=== PATIENT | male | born 1930 | race Hispanic/Latino ===

== ENCOUNTER 2017-09-19 13:50 | Observation (INO) | payer MEDICARE, MEDICAID ==
[2017-09-19 14:31] LABS: #Basophils 0.1 thou/uL (0.0-0.2); #Eosinphils 0.4 thou/uL (0.0-0.7); #Monocytes 0.4 thou/uL (0.11-0.59); #Neutrophils 6.3 thou/uL (1.40-6.50); %Basophils 0.8 % (0.0-1.0); %Eosinophils 4.2 % (0.0-10.0); %Lymphocytes 22.1 % (21.0-51.0); %Monocytes 4.2 % (0.0-10.0); Hematocrit 38.1 % (42.0-52.0); Mean Platelet Volume 7.5 fL (7.4-10.4); Red Blood Cell (RBC) Count 4.07 mill/uL (4.70-6.10); White Blood Cell (WBC) Count 9.2 thou/uL (4.8-10.8)
[2017-09-19 14:39] LABS: Digoxin Less than 0.15 ng/mL (0.8-2.0); PTT 29.3 SEC (22.9-36.1); Prothrombin Time 13.6 SEC (12.0-14.7)
[2017-09-19 14:41] LABS: ALT (SGPT) 48 U/L (8-55); AST (SGOT) 52 U/L (5-34); Alkaline Phosphatase 136 U/L (40-150); Anion Gap 17 mmol/L (10-20); BUN (Urea Nitrogen) 33 mg/dL (8.4-25.7); CK (CPK) 285 U/L (30-200); Calc. Creatinine Clearance 0 mL/min (70-130); Calcium 9.3 mg/dL (7.8-10.44); Carbon Dioxide 20 mmol/L (23-31); Chloride 100 mmol/L (98-107); Estimated GFR-MDRD 32; Globulin 3.6 g/dL (2.4-3.5); Lipase 9 U/L (8-78); Protein, Total 7.6 g/dL (5.8-8.1)
[2017-09-19 14:45] LABS: Troponin I 0.238 ng/mL (< 0.028)
[2017-09-19] MEDS ORDERED: Nitroglycerin 2% Ointment 1 INCH/1 GM Packet ONE (14:45)
--- NOTE | 2017-09-19 15:57 | RAD ---
PORTABLE AP CHEST X-RAY: 09/19/17 HISTORY: Chest pain. COMPARISON: None available. FINDINGS: The cardiac silhouette and pulmonary vasculature are within normal limits. There is blunting of the l eft lateral costophrenic angle which may represent a tiny left pleural effusion versus pleural and pa renchymal scarring. There is slight asymmetric increased density at the left lung apex with associate d calcification. This could be related to partially calcified pleural based plaque in this region, bu t this cannot be further evaluated on this exam. The lungs are otherwise clear. Osseous structures ar e intact. Surgical clips overlie the right upper quadrant. IMPRESSION: 1. Blunting left costophrenic angle which may be related to small left pleural effusion versus p leural and parenchymal scarring. 2. Asymmetric pleural density left lung apex with associated calcification. This could be relate d to chronic pleural and parenchymal scarring which is partially calcified. However, direct compariso n with prior chest x-rays is recommended if available. POS: NILAY
[2017-09-19] MEDS ORDERED: Senokot 8.6 MG TAB PO PRN (16:19)
[2017-09-19] MEDS ORDERED: Acetaminophen 325 MG TAB PO PRN (16:19)
[2017-09-19] MEDS ORDERED: Eucerin (Mineral Oil/Petrolatum,White) 30 gm Jar TOP PRN (16:19)
[2017-09-19] MEDS ORDERED: Loperamide HCl 2 MG CAP PO PRN (16:19)
[2017-09-19] MEDS ORDERED: Milk Of Magnesia 30 ML UDCUP PO PRN (16:19)
[2017-09-19] MEDS ORDERED: Sodium Chloride 0.65% Nasal 44 ML BOT EA NARE PRN (16:19)
[2017-09-19] MEDS ORDERED: Diabetic Tussin 200 MG/10 ML UDCUP PO PRN (16:19)
[2017-09-19] MEDS ORDERED: Mag-Al 1200 mg/1200 mg/30 ML UDCUP PO PRN (16:19)
[2017-09-19] MEDS ORDERED: Nitroglycerin 0.4 MG TAB (25 Tab Bottle) SL PRN (16:19)
[2017-09-19] MEDS ORDERED: Zolpidem Tartrate 5 MG TAB PO PRN (16:19)
[2017-09-19] MEDS ORDERED: Ondansetron HCl/PF 4 MG/2 ML Vial IVP PRN (16:19)
[2017-09-19] MEDS ORDERED: HYDROcodone/Acetaminophen 5/325 mg Tablet PO PRN (16:19)
[2017-09-19] MEDS ORDERED: Loratadine 10 MG TAB PO PRN (16:19)
[2017-09-19] MEDS ORDERED: Ondansetron ODT 4 MG TAB PO PRN (16:19)
--- NOTE | 2017-09-19 16:48 | HP ---
PRIMARY CARE PHYSICIAN: Dr. Asmita Townsend M.D. REASON FOR ADMISSION: Chest pain. 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 He is a very poor historian and his description of chest pain is left-sided pain about 5/10 in intensity, without any radiation, without any association of nausea, vomiting, diaphoresis. He was also feeling shortness of breath. Family member was worried about heart attack and that is why they brought him to the emergency room for evaluation. Family member reports that he also has right toe pain and because of back pain, patient is not eating and drinking enough at home. He was recently admitted for Blue toe syndrome and Dr. Jimenez evaluated this patient and patient was found with embolic phenomena. ALLERGIES: HYDROCODONE, MORPHINE, TRAMADOL. CURRENT HOME MEDICATIONS: Tylenol No. 3 one tablet q.6 hourly p.r.n., Imdur 60 mg daily, Flomax 0.4 mg p.o. at bedtime, Synthroid 75 mcg p.o. daily, Plavix 75 mg p.o. daily, aspirin 81 mg p.o. daily, Proscar 5 mg p.o. daily, Aricept 5 mg p.o. at bedtime, nitroglycerin 0.4 mg sublingual p.r.n. for chest pain, amlodipine 5 mg p.o. daily, fentanyl patch every 3 days, Flonase nasal spray daily, and Lipitor 40 mg p.o. at bedtime. PAST MEDICAL HISTORY: Coronary artery disease, peripheral vascular disease, benign enlargement of prostate, hypothyroidism, dyslipidemia, senile dementia, hypertension, and chronic kidney disease stage 3. PAST SURGICAL HISTORY: Cataract surgery, inguinal hernia repair, and cholecystectomy. PAST PSYCHIATRIC HISTORY: Reviewed and negative. SOCIAL HISTORY: Patient is a former smoker. Patient lives at home with the family. No history of alcohol or other illicit drug abuse. FAMILY HISTORY: Multiple family members have hypertension, coronary artery disease. No strong family history of cancer or stroke. EMERGENCY ROOM COURSE: Patient is given nitro patch and aspirin 324 mg. REVIEW OF SYSTEMS: The following complete review of systems was negative, unless otherwise mentioned in the HPI or below: Constitutional: Weight loss or gain, ability to conduct usual activities. Skin: Rash, itching. Eyes: Double vision, pain. ENT/Mouth: Nose bleeding, neck stiffness, pain, tenderness. Cardiovascular: Palpitations, dyspnea on exertion, orthopnea. Respiratory: Shortness of breath, wheezing, cough, hemoptysis, fever or night sweats. Gastrointestinal: Poor appetite, abdominal pain, heartburn, nausea, vomiting, constipation, or diarrhea. Genitourinary: Urgency, frequency, dysuria, nocturia. Musculoskeletal: Pain, swelling. Neurologic/Psychiatric: Anxiety, depression. Allergy/Immunologic: Skin rash, bleeding tendency. Please see my HPI for pertinent positives and negatives. All other review of systems reviewed and negative except as mentioned in the HPI. PHYSICAL EXAMINATION: VITAL SIGNS: On arrival, blood pressure 154/86, pulse 96, respiratory rate 17, temperature 98.1, saturation 96% on room air, and weight 47.1 kilograms. GENERAL: Patient is currently alert, awake, chronically ill, in no obvious acute distress, hypertensive. HEENT: Head is normocephalic, atraumatic. Eyes: Pupils round, reactive to light. Extraocular muscle intact. ENT: Oropharynx within normal limits. Moist mucous membranes. No oral lesions. No pharyngeal erythema, no exudate. NECK: Supple. Range of motion is normal. No meningeal signs of irritation. LUNGS: Clear to auscultation without any rhonchi or rales. CARDIAC: S1 and S2 regular. No murmur, no gallop, no rub. ABDOMEN: Soft, bowel sounds present, nontender, nondistended. No organomegaly , no mass, no suprapubic tenderness. BACK: Unremarkable, no CVA tenderness. EXTREMITIES: Upper extremity passive movement of all joints are normal. Lower extremity: Patient has bruising and ecchymosis of all 5 right-sided toes and right small toe is more macerated appearing. Left lower extremity within normal limits. No pitting edema. I could not elicit any calf tenderness or negative Homans' sign. NEUROLOGIC: Nonfocal examination. Patient is moving all four limbs, plantar bilateral flexor. PSYCHIATRIC: Normal affect. SKIN: No skin rash other than toe discoloration on the right side. HEMATOLOGIC: No lymphadenopathy. SIGNIFICANT LABS: EKG based on my review reveals normal sinus rhythm, nonspecific ST-T changes in lateral leads. Chest x-ray; left-sided small pleural effusion, chronic changes without any acute process. CBC: WBC 9.2, hemoglobin 12.3, platelet 215. INR 1.0. BMP: Sodium 133, potassium 4.2, chloride 100, carbon dioxide 20, anion gap 17, BUN 33, creatinine 1.97, glucose 91, and calcium 9.3. 2. LFT: AST 52, ALT 48, alkaline phosphatase 136, CK 285, CK-MB 5.4, troponin 0.238, albumin 4.0, lipase 9. Digoxin level less than 0.15. ASSESSMENT AND PLAN: 1. Chest pain. Patient's chest pain description is atypical. Difficult to determine whether it is angina or musculoskeletal pain. Patient has several risk factors for coronary artery disease. At this point, patient has indeterminant troponin, but EKG is unremarkable. We will keep this patient in the hospital for observation. We will do serial cardiac enzymes x3, we will decide if this patient needs any stress test tomorrow morning. At this point, I will keep n.p.o. after midnight and tomorrow morning based on his blood test, we will decide whether we need to do stress test or not. We will check lipid profile for risk stratification. Meanwhile, we will continue with aspirin 81 mg p.o. daily, Plavix 75 mg p.o. daily, and nitropatch q.8 hourly. We will also continue Lipitor 40 mg p.o. at bedtime. 2. Coronary artery disease. We will continue nitropatch q.8 hourly and the patient's home medication including aspirin and Plavix. 3. Hypothyroidism. We will continue Synthroid 75 mcg p.o. daily. 4. Benign enlargement of prostate. We will continue Flomax 0.4 mg p.o. daily and Proscar 5 mg p.o. daily. 5. Senile dementia. We will continue Aricept 5 mg p.o. daily. 6. Hypertension. We will continue with amlodipine 5 mg p.o. daily, nitropatch q.8 hourly and we will adjust blood pressure medication while in hospital. 7. Protein calorie malnutrition. The patient will be given nutritional supplement while in hospital. 8. Chronic kidney disease stage 3. We will monitor renal function. 9. Abnormal troponin. We will do serial cardiac enzymes x3 to rule out acute coronary syndrome. 10. Toe pain on the right side. 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 At this point, toe does not appear to be infected. The patient needs only symptomatic treatment and we will continue with Tylenol No. 3 versus Cam[place] while in hospital. Patient will also continue fentanyl patch every 3 days. 11. Deep venous thrombosis prophylaxis not needed because we are expecting discharge in 24 hours. 12. Gastrointestinal prophylaxis, Pepcid 20 mg p.o. b.i.d. 13. Code status: The patient is FULL CODE. The patient's daughter is surrogate decision maker. Disposition plan based on clinical course. We are expecting patient's stay in hospital 24 hours. Plan of care discussed with the patient and family member in the emergency room. KRYSTIAN
[2017-09-19 17:29] LABS: Troponin I 0.242 ng/mL (< 0.028)
[2017-09-19 18:14] VITALS: BMI 21.1
[2017-09-19] MEDS: Famotidine 20 MG TAB PO SCH (20:41)
[2017-09-19] MEDS: Acetaminophen/Codeine 30-300mg Tablet PO PRN (20:43)
[2017-09-19] MEDS ORDERED: Donepezil HCl 5 MG TAB PO SCH (21:00)
[2017-09-19] MEDS ORDERED: Atorvastatin Calcium 40 MG TAB PO SCH (21:00)
[2017-09-19 21:27] LABS: Troponin I 0.232 ng/mL (< 0.028)
[2017-09-19] MEDS: Nitroglycerin 2% Ointment 1 INCH/1 GM Packet TOP SCH (22:14)
[2017-09-19] MEDS: hydrALAZINE 20 MG/ML VIAL SLOW IVP PRN (23:34)
[2017-09-20 04:01] VITALS: TEMP 98.4
[2017-09-20] MEDS: hydrALAZINE 20 MG/ML VIAL SLOW IVP PRN (04:08)
[2017-09-20] MEDS: Nitroglycerin 2% Ointment 1 INCH/1 GM Packet TOP SCH (05:57)
[2017-09-20 06:09] LABS: #Eosinphils 0.9 thou/uL (0.0-0.7); #Lymphocytes 2.2 thou/uL (1.20-3.40); #Monocytes 0.7 thou/uL (0.11-0.59); %Basophils 0.4 % (0.0-1.0); %Eosinophils 9.3 % (0.0-10.0); %Lymphocytes 22.6 % (21.0-51.0); %Monocytes 6.6 % (0.0-10.0); Mean Platelet Volume 7.1 fL (7.4-10.4); Red Blood Cell (RBC) Count 4.05 mill/uL (4.70-6.10); White Blood Cell (WBC) Count 9.9 thou/uL (4.8-10.8)
[2017-09-20 06:37] LABS: Anion Gap 14 mmol/L (10-20); BUN (Urea Nitrogen) 35 mg/dL (8.4-25.7); Calc. Creatinine Clearance 22 mL/min (70-130); Calcium 9.4 mg/dL (7.8-10.44); Carbon Dioxide 22 mmol/L (23-31); Chloride 102 mmol/L (98-107); Cholesterol 113 mg/dl (< 200 Desired); Estimated GFR-MDRD 35; LDL Cholesterol, Calculated 49 mg/dL
[2017-09-20] MEDS: Acetaminophen/Codeine 30-300mg Tablet PO PRN (08:52)
[2017-09-20] MEDS: Famotidine 20 MG TAB PO SCH (08:56)
[2017-09-20] MEDS ORDERED: Amlodipine 5 MG TAB PO SCH (09:00)
[2017-09-20] MEDS ORDERED: Tamsulosin HCl 0.4 MG CAP PO SCH (09:00)
[2017-09-20] MEDS ORDERED: Clopidogrel Bisulfate 75 MG TAB PO SCH (09:00)
[2017-09-20] MEDS ORDERED: Finasteride 5 MG TAB PO SCH (09:00)
--- NOTE | 2017-09-20 11:17 | DIS ---
DATE OF ADMISSION: 09/19/2017 DATE OF DISCHARGE: 09/20/2017 PRIMARY CARE PHYSICIAN: Dr. Asmita Townsend. DISCHARGE DISPOSITION: Home. PRIMARY DISCHARGE DIAGNOSES: 1. Right small toe pain. 2. Chest pain, ruled out acute coronary syndrome. SECONDARY DISCHARGE DIAGNOSES: Benign enlargement of prostate, coronary artery disease, chronic syst olic heart failure, chronic kidney disease stage 3, dyslipidemia, chronically elevated troponin, hypo thyroidism, moderate protein-calorie malnutrition, peripheral vascular disease and senile dementia. PRIMARY PROCEDURE/OPERATION: None. RADIOLOGICAL INVESTIGATION: Chest x-ray normal. SIGNIFICANT LABS: WBC 9.9, hemoglobin 12.6, platelets 246. INR 1.0. Sodium 134, potassium 3.7, BUN 35, creatinine 1.85, calcium 9.4, AST 52, ALT 48, alkaline phosphatase 136. Troponin 0.232, LDL 49, HDL 52, triglyceride 58. Lipase is 9. Digoxin level was 0.15. DISCHARGE MEDICATIONS: Tylenol with codeine 1 tablet q.4 hourly p.r.n., amlodipine 5 mg p.o. daily, aspirin 81 mg p.o. daily, Plavix 75 mg p.o. daily, Lipitor 40 mg p.o. daily, Aricept 5 mg p.o. at bed time, Duragesic patch 25 mcg every 3 days, Proscar 5 mg p.o. daily, Flonase nasal spray daily, Imdur 60 mg daily, Synthroid 75 mcg p.o. daily, nitroglycerin 0.4 mg sublingual p.r.n., and Flomax 0.4 mg p .o. daily. CONTRAINDICATIONS: Patient is not on IJEOMA inhibitor and ARB because of renal failure. TEST RESULTS PENDING ON DISCHARGE: None. INPATIENT CONSULTANTS: None. ALLERGIES: HYDROCODONE, MORPHINE, and TRAMADOL. DISCHARGE PLAN: Post hospital, the patient will follow up with Dr. Asmita Townsend in 1 week. HOSPITAL COURSE: An 87-year-old male who has different medical record as well and he is in our hospital recently a few more times, this patient has cholesterol embolic phenomena in his right f oot, especially right little toe is affected from that cholesterol embolus and that is why he has dis coloration in the right fourth toe and he has pain since then. Because of that pain, his blood press ure was getting worse and he was also getting anxious because he was not able to walk with pain and Vale Hankins recently consulted and he was recommended that, at this point nothing intervention r equired for that problem other than pain medication and he is on optimal medical therapy as well. Yesterday's reason for admission because he was also having chest pain and that is why we kept him in the hospital. His troponin is indeterminate range, but is already better than before when we compar ed his old record. He already had all recent testing done in our hospital. He also had echocardiogr aphy. During this admission, we did not pursue any more testing. We observed him overnight 24 hours and his telemetry remained unremarkable. Next day, he was not having any chest pain, but he was sti ll having toe pain. I provided patient counseling as well as patient's family education about to wha t to do and what not to do at this point. We have to wait and at this point, there is no need of amp utation, no need of any further intervention other than pain medication. The patient is medically stable, reassurance given. PHYSICAL EXAMINATION: VITAL SIGNS: Today, currently temperature 98.4, pulse 95, blood pressure 160/77, saturation 97%. We ight 123 pounds. GENERAL: The patient is currently alert, awake, no acute distress. HEAD: Normocephalic, atraumatic. LUNGS: Clear. CARDIAC: S1, S2 regular without any murmurs. ABDOMEN: Soft and benign. EXTREMITIES: Right little toe is mildly discolored, but no gangrene and/or no infection. No celluli tis surrounding. NEUROLOGIC: Nonfocal examination. The patient is medically stable for discharge today.
[2017-09-20 11:23] VITALS: BP 172/82
== END 2017-09-20 12:00 | disposition home or self-care (01) ==
LOC: ERS 13:50 → 2SW 16:14
PROVIDERS: ADMIT Internal Medicine; ATTEND Internal Medicine
DX: R07.89 Other chest pain (principal); M79.674 Pain in right toe(s); N40.0 Benign prostatic hyperplasia without lower urinary tract symptoms; I25.10 Atherosclerotic heart disease of native coronary artery without angina pectoris; E78.5 Hyperlipidemia, unspecified; E03.9 Hypothyroidism, unspecified; I73.9 Peripheral vascular disease, unspecified; F03.90 Unspecified dementia, unspecified severity, without behavioral disturbance, psychotic disturbance, mood disturbance, and anxiety; I13.0 Hypertensive heart and chronic kidney disease with heart failure and stage 1 through stage 4 chronic kidney disease, or unspecified chronic kidney disease; N18.3 Chronic kidney disease, stage 3 (moderate); I50.22 Chronic systolic (congestive) heart failure; E44.0 Moderate protein-calorie malnutrition; Z68.21 Body mass index [BMI] 21.0-21.9, adult; Z88.5 Allergy status to narcotic agent; Z79.82 Long term (current) use of aspirin; Z79.899 Other long term (current) drug therapy; Z90.49 Acquired absence of other specified parts of digestive tract; Z98.890 Other specified postprocedural states; Z87.891 Personal history of nicotine dependence
CPT/HCPCS: 71010; 80048; 80053; 80061; 80162; 82550; 82553; 83690; 84484 ×2; 85025 ×2; 85610; 85730; 93005; 93306; 96374; 96376; 99285; G0378; 36415; J0360